=== PATIENT | female | born 1950 | race Caucasian/White ===

== ENCOUNTER 2016-08-30 01:24 | Inpatient (IN) | payer OTHER ==
[~2016-08-30] VITALS: Ht 165.1 cm; Wt 74.4 kg
[~2016-08-30 01:24] MED LIST: ACCUPRIL40 M1 PO; AMLODIPINE BESY10 M1 PO; ASPIRIN EC81 M1 PO; CHLORTHALIDONE25 M1 PO; CRESTOR10 M1 PO; CYCLOBENZAPRINE5 M2 PO; MULTI-DAY VITA1 EACH PO; VITAMIN D1000 UNIT PO
--- NOTE | 2016-08-30 12:47 | Admission Core Measures ---
Admission Meds I reviewed the following Meds: Current Medications Sig/Anastasia Start time Last Medication Dose Stop Time Status Admin Acetaminophen 975 MG ONCE 08/30 0000 NR (Tylenol) 08/30 2358 Amlodipine Besylate 10 MG DAILY 08/31 1000 AC (Norvasc) Cefazolin Sodium 2,000 MG ONCE 08/30 0000 NR (Kefzol-Ancef Inj) 08/30 2358 Chlorthalidone 25 MG DAILY 08/31 1000 UNVr (Hygroton) Cyclobenzaprine HCl 5 MG TID 08/30 1600 AC (Flexeril 5MG Tab) Lisinopril 40 MG DAILY 08/31 1000 AC (Prinivil) Oxycodone HCl 10 MG ONCE 08/30 0000 NR (Roxicodone) 08/30 2358 Acute Coronary Syndrome Inclusion Criteria ACS Diagnosis No Inpatient Core Measures LDL Reminder: If No, please order W/I first 24hr of stay Congestive Heart Failure Inclusion Criteria CHF Diagnosis No Cerebrovascular accident Inclusion Criteria CVA/TIA Diagnosis No Inpatient Core Measures Bedside Swallow Eval Reminder: If BSE failed, place ST order Antithrombotic Reminder: Order Antithrombotic Medication by end of day 2 Antithrombotic Reminder: Document Reason Antithrombotic Not ordered by end of day 2 AFIB/Flutter Reminder: If Present, add to problem list AFIB/Flutter Reminder: Order Anticoag Medication for pts with AFIB/Flutter Atherosclerosis Reminder: If Present, add to problem list LDL Reminder: If No, please order W/I first 24hr of stay PT Order Reminder: If No, please order Venous thromboembolism Inpatient Core Measures VTE Risk Factors: Age > 40, Surgery VTE Prophylaxis Ordered Inpt [facility] VTE prophylaxis d/t No contraindications No VTE Pharm Prophylaxis d/t No contraindications Inclusion Criteria - Per Current guidelines, there needs to be overlap - treatment for the first 5 days of Warfarin therapy. - Parenteral Anticoagulation (IV or SC) needs to be - given along with Warfarin therapy. VTE Diagnosis No VTE Type NONE VTE Confirmed by (Test) NONE Problem List As ranked by this Provider includes Assessment & Plan 1. Unilateral primary osteoarthritis, right hip HOME MEDS Home Med List Amlodipine Besylate 10 MG TABLET 1 TAB PO DAILY BP (Reported) Aspirin (Ecotrin*) 81 MG TABLET.DR 1 TAB PO DAILY HEART/BLOOD (Reported) Chlorthalidone 25 MG TABLET 1 TAB PO DAILY BP (Reported) Cholecalciferol (Vitamin D3) (Vitamin D) 1,000 UNIT TABLET 1 TAB PO DAILY SUPPLEMENT (Reported) Cyclobenzaprine HCl 5 MG TABLET 1 TAB PO TID SPASMS (Reported) Multivitamin (Multi-Day Vitamins) 1 EACH TABLET 1 TAB PO DAILY SUPPLEMENT ( Reported) Quinapril HCl (Accupril) 40 MG TABLET 1 TAB PO DAILY BP (Reported) Rosuvastatin Calcium (Crestor) 10 MG TABLET 1 TAB PO DAILY CHOLESTEROL ( Reported)
[2016-08-30] MEDS ORDERED: ASPIRIN EC325 M2 PO (12:52)
[2016-08-30] MEDS ORDERED: MS CONTIN15 M2 PO (12:52)
[2016-08-30] MEDS ORDERED: DILAUDID2 M1 PO (12:52)
[2016-08-30] MEDS ORDERED: COLACE100 M1 PO (12:52)
[2016-08-30] MEDS ORDERED: MIRALAX17 G1 PO (12:52)
--- NOTE | 2016-08-30 12:57 | Patient Discharge Instructions ---
Discharge Instructions General Discharge Information You were seen/treated for: Right hip pain You had these procedures: Right total hip replacement Watch for these problems: Increasing pain, redness, warmth, swelling. Drainage of any type from incision. Inability to bear weight on right leg. Fever greater than 101.5. Do not soak the wound: Yes No bath, but you may shower: Yes Special Instructions: Incision: Dry dressing. May shower. No baths. No ointments of any kind. Ice as needed. Bowel regimen: Colace and or MiraLAX Weight-bearing as tolerated Follow-up with Dr. Serna in 6 weeks. Call office for fevers greater than 101.5, excessive drainage or inability to bear weight on operative extremity. Visiting nurse will change dressing. Diet Continue normal diet: Yes Recommended Diet: Heart Healthy Additional DIET Information: Advance as tolerated Activity Full Activity/No Limits: No Activity Self Limited: Yes Pounds, do NOT lift more than: 10 Acute Coronary Syndrome Inclusion Criteria At DC or during hospital stay patient has or had the following: ACS DIAGNOSIS No Discharge Core Measures Meds if any: Prescribed or Continued at Discharge Meds if any: NOT Prescribed or Continued at Discharge Congestive Heart Failure Inclusion Criteria At DC or during hospital stay patient has or had the following: CHF DIAGNOSIS No Discharge Core Measures Meds if any: Prescribed or Continued at Discharge Meds if any: NOT Prescribed or Continued at Discharge Cerebrovascular accident Inclusion Criteria At DC or during hospital stay patient has or had the following: CVA/TIA Diagnosis No Discharge Core Measures Meds if any: Prescribed or Continued at Discharge Meds if any: NOT Prescribed or Continued at Discharge Venous thromboembolism Inclusion Criteria VTE Diagnosis No VTE Type NONE VTE Confirmed by (Test) NONE Discharge Core Measures - Per Current guidelines, there needs to be overlap - treatment for the first 5 days of Warfarin therapy. - If discharged on Warfarin prior to 5 days of - overlap therapy, the patient will need to be - assessed for post discharge needs including - *Post discharge parental anticoagulation - *Warfarin and/or parental anticoagulation education - *Follow up date to check INR post discharge At least 5 days overlap therapy as Inpatient No Meds if any: Prescribed or Continued at Discharge Note: Overlap Therapy is Warfarin and Anticoagulant Meds if any: NOT Prescribed or Continued at Discharge
--- NOTE | 2016-08-30 12:59 | Surgical Discharge Summary ---
Visit Information Visit Dates Admission Date: 08/30/16 Discharge Date: 08/31/2016 History of Present Illness Chief Complaint: Right hip pain Medical History Isolation History: Standard Surgical History Pertinent Surgical History: non-contributory Review of Systems: See H&P Hospital Course Course Attending Physician: CHAO VILLATORO MD Primary Care Physician: ANA TORRES,Channing Home Course: Patient was admitted to the hospital on 08/30/2016 for an elective right total hip replacement. She tolerated the procedure well. She was transferred to a general surgical floor. Her vitals were stable and within normal limits. Her diet was advanced and tolerated. She voided spontaneously. Her pain was well controlled. She was evaluated and treated by physical therapy. She was deemed appropriate for discharge. Allergies: Coded Allergies: Penicillins (Intermediate, RASH 08/24/16) STATINS (Intermediate, MYALGIAS 08/24/16) oxycodone (From OXYCONTIN) (Severe, GI UPSET 08/24/16) Sulfa (Sulfonamide Antibiotics) (Intermediate, GI UPSET 08/24/16) Disposition Summary Disposition Principal Diagnosis: Right hip unilateral primary osteoarthritis Additional Diagnosis: None Discharge Disposition: home health services Discharge Instructions General Discharge Information Code Status: Full Code Patient's Diet: Heart healthy, advance as tolerated Patient's Activity: Weight-bear as tolerated on right lower extremity Follow-Up Instructions/Appts: Incision: Dry dressing. May shower. No baths. No ointments of any kind. Ice as needed. Bowel regimen: Colace and or MiraLAX Weight-bearing as tolerated Follow-up with Dr. Villatoro in 6 weeks. Call office for fevers greater than 101.5, excessive drainage or inability to bear weight on operative extremity. Visiting nurse will change dressing. Medications at Discharge Discharge Medications: Continue taking these medications: Quinapril HCl (Accupril) 40 MG TABLET 1 Tablet ORAL DAILY Comments: DOCUMENTED PER CMR DURING PRE-SX INTERVIEW Chlorthalidone (Chlorthalidone) 25 MG TABLET 1 Tablet ORAL DAILY Comments: DOCUMENTED PER CMR DURING PRE-SX INTERVIEW Amlodipine Besylate (Amlodipine Besylate) 10 MG TABLET 1 Tablet ORAL DAILY Comments: DOCUMENTED PER CMR DURING PRE-SX INTERVIEW Rosuvastatin Calcium (Crestor) 10 MG TABLET 1 Tablet ORAL DAILY Comments: DOCUMENTED PER CMR DURING PRE-SX INTERVIEW Aspirin (Ecotrin*) 81 MG TABLET.DR 1 Tablet ORAL DAILY Comments: DOCUMENTED PER CMR DURING PRE-SX INTERVIEW Multivitamin (Multi-Day Vitamins) 1 EACH TABLET 1 Tablet ORAL DAILY Comments: DOCUMENTED PER CMR DURING PRE-SX INTERVIEW Cholecalciferol (Vitamin D3) (Vitamin D) 1,000 UNIT TABLET 1 Tablet ORAL DAILY Comments: DOCUMENTED PER CMR DURING PRE-SX INTERVIEW Cyclobenzaprine HCl (Cyclobenzaprine HCl) 5 MG TABLET 1 Tablet ORAL THREE TIMES DAILY Comments: DOCUMENTED PER CMR DURING PRE-SX INTERVIEW Start taking the following new medications: Hydromorphone HCl (Dilaudid) 2 MG TABLET 1-2 Tablet ORAL Q4-6H as needed for PAIN Days = 36 No Refills Morphine Sulfate (Ms Contin) 15 MG TABLET.ER 1 Tablet ORAL TWICE DAILY Qty = 6 No Refills Aspirin (Ecotrin*) 325 MG TABLET. 1 Tablet ORAL TWICE DAILY Qty = 60 No Refills Polyethylene Glycol 3350 (Miralax) 17 GRAM POWD.PACK 1 Packet ORAL DAILY Qty = 7 No Refills Instructions: dissolve in water, DISCONTINUE USE IF YOU DEVELOP LOOSE STOOL OR DIARRHEA Docusate Sodium (Colace) 100 MG CAPSULE 1 Capsule ORAL TWICE DAILY Qty = 14 No Refills Instructions: DISCONTINUE USE IF YOU DEVELOP LOOSE STOOL OR DIARRHEA
--- NOTE | 2016-08-30 15:11 | RADIOLOGY REPORT ---
EXAMINATION: XR HIP, RIGHT CLINICAL INFORMATION: Status post right total hip arthroplasty COMPARISON: None TECHNIQUE: Two views of the right hip. FINDINGS: There are postsurgical changes identified without evidence of immediate hardware fracture or complication. IMPRESSION: Postoperative changes as noted.
--- NOTE | 2016-08-30 15:56 | Operative Report ---
Operative/Inv Procedure Report Surgery Date: 08/30/16 Name of Procedure: Right total hip replacement Pre-Operative Diagnosis: Primary right hip DJD Post-Operative Diagnosis: Same Estimated Blood Loss: 250 Surgeon/Mannequin Sander And Finisher: IRVING TORRES,CHAO [place] Anesthesia: block Operative/Procedure Note Note: Description of Procedure: The patient was taken to the operating room and positively identified. After induction of spinal anesthesia and administration of appropriate pre-operative antibiotics, the patient was positioned supine on the operating room table and all bony prominences were well padded. After performing a surgical timeout, the right lower extremity was prepped and draped in the usual sterile fashion. A direct anterior approach was made to the right hip. The incision was carried sharply through superficial soft tissues to the level of the fascia. Meticulous hemostasis was maintained with Bovie electocautery. The fascia over the tensor fascia johnathan muscle was opened sharply and the interval between the TFL and the sartorius was entered bluntly taking care to stay lateral to the lateral femoral cutaneous nerve. Retractors were placed around the femoral neck and the pericapsular fat was identified. The ascending branches of the lateral femoral circumflex vessels were identified and carefully coagulated. The pericapsular fat and anterior capsule were then resected. A napkin ring osteotomy was performed and the femoral head was removed without difficulty. Attention was then turned to the acetabulum. After appropriate placement of retractors, the acetabulum was exposed. Soft tissue was cleaned from the acetabular margin and notch. Overhanging osteophytes were removed and the teardrop was exposed. The acetabulum was then sequentially reamed to accept a 54 mm Freddy Tritanium hemispherical solid back shell. This was impacted into place in the appropriate position and fitted with a 36 mm Trident X3 zero degree eccentric polyethylene insert. Attention was then turned to the femur. After performing the appropriate ligament releases, the proximal femur was exposed. It was then sequentially broached to accept a size 4 Freddy accolade 2 stem. This was trialed for leg length and stability. The trial component was removed and the final component was impacted into place. The trunnion was carefully cleaned and fit with a 36 mm, -2.5 Biolox delta ceramic femoral head. The hip was reduced and put through a full range of motion and found to be stable. The articular space was then irrigated with sterile saline. The periarticular soft tissues were infilitrated with Marcaine. The fascial layer was closed with interrupted #1 vicryl suture and the skin was re-approximated with interrupted 2 -0 vicryl. The skin was closed with a running 3-0 V-Lock suture. Steri-strips and a sterile dressing were applied. The patient was awakened and taken to the recovery room in satisfactory condition.
--- NOTE | 2016-08-30 16:18 | PN- Orthopedic ---
Subjective Subjective: The patient was seen this evening postoperatively. She reports her pain is under adequate control and had no other complaints at the current time Objective Vital Signs and I&Os Vital signs: Blood pressure 115/68, pulse 70, temperature 98.2, O2 saturation 97 % on room air I's and O's: 1000 ML's in of lactated Ringer's/150 ML's out of urine/EBL less than 100 Physical Exam: Gen.: Alert and in no obvious distress Skin: Warm and dry Cardiac: S1-S2 regular Pulmonary: Bilateral breath sounds were equal and decreased at bases Extremities: Bilateral lower extremities warm without calf tenderness or significant edema. Gross motor and sensory were intact. Right hip surgical dressing was clean, dry, and intact without signs of infection. Assessment/Plan Assessment/Plan Assessment: 66-year-old female status post right total hip arthroplasty. Postoperative the patient is progressing as expected and her pain is under adequate control. Plan: Out of bed with physical therapy patient is weightbearing as tolerated Continue current pain regiment GI and DVT prophylaxis start aspirin 325 mg by mouth twice a day first dose tonight Follow-up morning laboratory studies Strict I's and O's Advance diet as tolerated Resume home medications 2 doses of prophylactic postoperative antibiotics Core Measures/Miscellaneous Venous Thromboembolism VTE Risk Factors: Age > 40, Surgery VTE Contraindications: No Contraindications VTE Prophylaxis Ordered Inpt: Mech & Pharm VTE Diagnosis: No VTE Type: NONE VTE Confirmed by (Test): NONE Beta Lauro Is Beta Lauro a Home Med? No Antibiotics Is Patient on Antibiotics? Yes If Yes: prophylaxis
--- NOTE | 2016-08-30 16:49 | NUR ---
PHYSICAL THERAPY. Pt REMAINS IN PACU S/P R ANT [place]. SPOKE W/ PACU AND DISCUSSED THAT PT WILL EVALUATE Pt IN AM.
[2016-08-30 17:10] VITALS: BP 108/72
[2016-08-30 20:03] VITALS: BP 130/78
--- NOTE | 2016-08-30 20:38 | NUR ---
LATE ENTRY: PATIENT ARRIVED TO FLOOR AT 1700 FROM PACU, S/P R TOTAL HIP VS 97.8 72 16 108/72 98% ROOM AIR A&O, LCTA, NORMALLY INDEPENDENT. DSG TO R HIP CDI, NO C/O PAIN. ALPS ARE ON, AES ORDERED (NO MED LONG ON FLOOR) DIXON REMOVED IN PACU, DTV BY 0100, HAS ALREADY VOIDED 350CC #20 IV TO RH, WITH D5 1/2 NS @ 75 ML/HR RUNNING. HEART HEALTHY DIET TOLERATED WELL. ORIENTED TO ROOM AND CALL [place]. CONTINUE TO MONITOR.
[2016-08-30 21:58] VITALS: BP 122/76
[2016-08-31 00:44] VITALS: BP 122/70
[2016-08-31 04:03] VITALS: BP 130/76
--- NOTE | 2016-08-31 07:45 | PN- Orthopedic ---
Subjective Subjective: The patient seen this morning postoperatively day #1. She reports some mild soreness around the incision is otherwise comfortable. She has no other complaints at the current time and denies any chest pain or difficulty breathing. She is eager to work with physical therapy and go home later today if possible. Objective Vital Signs and I&Os Vital Signs Date Time Temp Pulse Resp B/P Pulse O2 O2 Flow FiO2 Ox Delivery Rate 08/31 0403 98.4 69 20 130/76 93 08/31 0044 97.8 69 20 122/70 95 08/30 2158 98.0 65 20 122/76 94 Room Air 08/30 2002 98.4 72 20 130/78 98 Room Air 08/30 1710 97.8 72 16 108/72 98 Room Air Intake & Output 08/31 0800 08/31 0000 08/30 1600 08/30 0800 08/30 0000 08/29 1600 Intake Total 840 2430 Output Total 1000 2300 Balance -160 130 Intake, IV 600 1950 Intake, Oral 240 480 Output, Urine 1000 2300 Patient 164 lb Weight Physical Exam: Gen.: Alert and obvious distress Skin: Warm and dry Extremities: Bilateral lower extremities are warm without calf tenderness or significant edema. Gross motor and sensory are intact. Surgical dressing is clean, dry, and intact without signs of infection. There is some mild amy- incisional edema which is to be expected. Assessment/Plan Assessment/Plan Assessment: 66 year old female status post right total hip arthroplasty postoperative day #1. The patient is progressing as expected and her pain is under adequate control. Plan: Out of physical therapy patient is appearing as tolerated Continue current pain regiment GI and DVT prophylaxis Follow-up morning laboratory studies Hep-Lock IV fluids Discharge home later today if cleared by physical therapy Core Measures/Miscellaneous Venous Thromboembolism VTE Risk Factors: Age > 40, Surgery VTE Contraindications: No Contraindications VTE Prophylaxis Ordered Inpt: Mech & Pharm VTE Diagnosis: No VTE Type: NONE VTE Confirmed by (Test): NONE Beta Lauro Is Beta Lauro a Home Med? No Antibiotics Is Patient on Antibiotics? No
[2016-08-31 08:02] VITALS: BP 132/80
[2016-08-31 09:13] LABS: ABSOLUTE BASOPHIL COUNT 0 /CUMM (0.0-0.2); ABSOLUTE EOSINOPHIL COUNT 0 /CUMM (0.0-0.7); ABSOLUTE GRANULOCYTE CT 10.3 /CUMM (1.4-6.5); ABSOLUTE LYMPH COUNT 1.3 /CUMM (1.2-3.4); ABSOLUTE MONOCYTE COUNT 0.8 /CUMM (0.10-0.60); BASOPHIL % 0.2 % (0.0-2.0); EOSINOPHIL % 0.2 % (0-5); GRANULOCYTE % 82.3 % (42.2-75.2); HEMATOCRIT 32.2 % (37-47); MEAN CORPUSCULAR HGB 30.4 PG (27.0-31.0); MEAN CORPUSCULAR HGB CONC 33.9 G/DL (33.0-37.0); MEAN CORPUSCULAR VOLUME 89.6 FL (81.0-99.0); MEAN PLATELET VOLUME 8.4 FL (7.4-10.4); PLATELET COUNT 291 /CUMM (130-400); RBC DISTRIBUTION WIDTH 12.4 % (11.5-14.5); WHITE BLOOD CELL COUNT 12.5 /CUMM (4.8-10.8)
[2016-08-31 09:57] VITALS: BP 132/80
== END 2016-08-31 14:21 | disposition home health service (06) | DRG 470 ==
LOC: ENRESERVDT → ENRESERVTM → SDA 01:24 → ENPENDDIS 01:24 → 2NB 16:50
PROVIDERS: Nurse Practitioner; ADMIT Orthopaedic Surgery
PROC: 0SR904A Replacement of Right Hip Joint with Ceramic on Polyethylene Synthetic Substitute, Uncemented, Open Approach (ICD-10-PCS; principal; 2016-08-30)
DX: M16.11 Unilateral primary osteoarthritis, right hip (principal); I10 Essential (primary) hypertension
CPT/HCPCS: 2NSBP; 36415; 73502-RT; 82436; 88304; 97116-GO; 97161-GP; 97530-GO; J0690; J0735; J2405; J2550; J7042